=== PATIENT | male | born 1995 | race Two or more races ===

== ENCOUNTER 2021-05-21 21:51 | Emergency (ER) | payer SELFPAY ==
[~2021-05-21] VITALS: Ht 185.4 cm; Wt 68.0 kg
[2021-05-21 22:03] VITALS: BP 118/89
--- NOTE | 2021-05-22 01:49 | NUR ---
PT A, OX, AMBULATORY W. STEADY GAITS. DENIED SI/HI. STABLE FOR D/C PER MD.
== END 2021-05-22 01:51 | disposition home or self-care (01) ==
LOC: ER 21:55
DX: F10.129 Alcohol abuse with intoxication, unspecified (principal); F17.210 Nicotine dependence, cigarettes, uncomplicated; Z59.0 Homelessness; Y90.9 Presence of alcohol in blood, level not specified

== ENCOUNTER 2022-06-26 01:47 | Emergency (ER) | payer MEDICAID, OTHER ==
[~2022-06-26] VITALS: Ht 170.2 cm; Wt 70.3 kg
[2022-06-26 02:10] VITALS: BP 124/64
[2022-06-26] MEDS ORDERED: KETO10TA2 PO (02:26)
--- NOTE | 2022-06-26 03:30 | NUR ---
Patient discharged to home in stable condition. Written and verbal after care instructions given. Patient verbalizes understanding of instruction.
== END 2022-06-26 03:30 | disposition home or self-care (01) ==
LOC: ER 01:48
DX: S70.02XA Contusion of left hip, initial encounter (principal); X58.XXXA Exposure to other specified factors, initial encounter; Y93.89 Activity, other specified; Y92.89 Other specified places as the place of occurrence of the external cause; Y99.8 Other external cause status

== ENCOUNTER 2022-07-06 10:16 | Emergency (ER) | payer MEDICAID ==
[~2022-07-06] VITALS: Ht 180.3 cm; Wt 63.5 kg
[~2022-07-06 10:16] MED LIST: KETO10TA2 PO
[2022-07-06 10:23] VITALS: BP 114/69
[2022-07-06] MEDS ORDERED: ACETAMINOPHEN ES 500 MG TABLET PO ONE (11:00)
[2022-07-06] MEDS ORDERED: ACETAMINOPHEN ES 500 MG TABLET ONE (11:06)
--- NOTE | 2022-07-06 11:45 | NUR ---
Lunch and medicated as ordered- Tolerated well
--- NOTE | 2022-07-06 11:50 | NUR ---
IDALIA BUCK AT BEDSIDE FOR BLOOD DRAW
== END 2022-07-06 13:08 | disposition home or self-care (01) ==
LOC: ER 10:18
DX: M25.552 Pain in left hip (principal); F17.200 Nicotine dependence, unspecified, uncomplicated; Z59.00 Homelessness unspecified
CPT/HCPCS: 73502